=== PATIENT | male | born 1995 | race African-American/Black ===

== ENCOUNTER 2018-04-04 13:10 | Emergency (ER) | payer OTHER ==
[2018-04-04] MEDS: ONDANSETRON 4 MG ORAL DISINTEGRATING TAB (Q0162 PER 1MG) PO (14:33)
[2018-04-04] MEDS: KETOROLAC TROMETHAMINE 10 MG TAB PO (14:34)
[2018-04-04] MEDS: DERMABOND TOPICAL SKIN ADHESIVE TOP (14:34)
== END 2018-04-04 15:18 | disposition home or self-care (01) ==
LOC: M ED 13:10
DX: S02.2XXA Fracture of nasal bones, initial encounter for closed fracture (principal); S01.21XA Laceration without foreign body of nose, initial encounter; W50.0XXA Accidental hit or strike by another person, initial encounter; Y99.8 Other external cause status; Y93.67 Activity, basketball; Y92.9 Unspecified place or not applicable
CPT/HCPCS: Q0162

== ENCOUNTER 2018-09-29 05:40 | Emergency (ER) | payer OTHER ==
[~2018-09-29] VITALS: Ht 177.8 cm; Wt 90.9 kg
[~2018-09-29 05:40] MED LIST: NORCOTAB PO
[2018-09-29] MEDS ORDERED: KETOROLAC TROMETHAMINE 10 MG TAB PO ONE (06:30)
[2018-09-29] MEDS ORDERED: ONDANSETRON 4 MG ORAL DISINTEGRATING TAB (Q0162 PER 1MG) PO ONE (06:30)
--- NOTE | 2018-09-29 07:05 | REPVR ---
EXAM: CT Head Without Contrast EXAM DATE/TIME: 09/29/2018 6:20 AM CLINICAL HISTORY: 23 years old, male; Injury or trauma; Fall; Additional info: Fall from 8ft yesterday, unknown if hit head, dizzy today TECHNIQUE: Axial computed tomography images of the head/brain without contrast. All CT scans at this facility use at least one of these dose optimization techniques: automated exposure control; mA and/or kV adjustment per patient size (includes targeted exams where dose is matched to clinical indication); or iterative reconstruction. COMPARISON: No relevant prior studies available. FINDINGS: Brain: No acute posttraumatic brain injury. Symmetric caliber of the cortical sulci. Normal joe-white matter differentiation. Dural calcification. Ventricles: Normal configuration of the ventricles. Bones/joints: No acute calvarial injury. Sinuses: No sinus fluid. Mastoid air cells: No mastoid effusion. Soft tissues: No significant scalp hematoma. IMPRESSION: No acute posttraumatic brain injury. Electronically signed by: Emanuel Duran On 09/29/2018 07:04:55 AM
[2018-09-29 07:11] LABS: INFLUENZA A AMPLIFICATION NEGATIVE (NEGATIVE); INFLUENZA B AMPLIFICATION NEGATIVE (NEGATIVE)
[2018-09-29] MEDS ORDERED: ONDA4TAB6 PO (07:14)
[2018-09-29 07:29] VITALS: BP 137/59
== END 2018-09-29 07:31 | disposition home or self-care (01) ==
LOC: M ED 05:40
DX: R51 Headache (principal); R11.0 Nausea; W17.89XA Other fall from one level to another, initial encounter
CPT/HCPCS: 70450; 87502; 87880; 99284; Q0162